=== PATIENT | male | born 1975 | race Caucasian/White ===

== ENCOUNTER 2016-11-27 03:41 | Emergency (ER) | payer OTHER ==
--- NOTE | ~2016-11-27 | ER ---
[facility] 41 [facility] [address] ROOM: [place] [address] LOCATION: [facility] ADMIT DATE: 11/27/2016 ER/Outpatient Report DISCHARGE DATE: FAMILY PHYSICIAN: Daquan Frias MD ATTENDING PHYSICIAN: Russell Dunham Time of Arrival: 0341 hours. Time of Evaluation: 0344 hours CHIEF COMPLAINT: Chest pain. HISTORY OF PRESENT ILLNESS: The patient is a 41-year-old male who presents to the emergency department today with a chief complaint of chest pain. He reports this started about 5 hours prior to arrival. Denies any history of similar episodes in the past. It is on the right side of his chest. It is a pressure type pain currently 5/10 in severity. Denies any shortness of breath. No diaphoresis. No nausea or vomiting. Denies any cough. No ripping or tearing sensation. No history of PE, DVT. No hemoptysis. Nothing makes it worse. Nothing makes it better. PAST MEDICAL HISTORY: None. PAST SURGICAL HISTORY: None. FAMILY HISTORY: No early history of coronary artery disease or heart attacks in mother, father, and brother. SOCIAL HISTORY: The patient denies any tobacco use. Reports occasional alcohol use. Denies any illicit drug use. ALLERGIES: NO KNOWN DRUG ALLERGIES. MEDICATIONS: None. PRIMARY CARE DOCTOR: Dr. Frias. REVIEW OF SYSTEMS: [facility] 41 Y [address] ROOM: [place] [address] LOCATION: [facility] ADMIT DATE: 11/27/2016 ER/Outpatient Report DISCHARGE DATE: FAMILY PHYSICIAN: Daquan Frias MD ATTENDING PHYSICIAN: Russell Dunham All systems are reviewed by myself and negative with the exception of those discussed in HPI and past medical history. PHYSICAL EXAMINATION: VITAL SIGNS: Weight 105 kg. Blood pressure 125/79, pulse 67, respiratory rate 16, temperature 98, oxygen saturation 96% on room air. GENERAL: The patient is a 41-year-old male, who his appears his stated age, in no acute distress at this time. HEENT: Head normocephalic atraumatic. Pupils are equal, round, and reactive to light. Extraocular motions intact. NECK: Supple. There is no nuchal rigidity. CARDIOVASCULAR: Regular rate and rhythm. No murmurs, rubs, or gallops. LUNGS: Clear to auscultation bilaterally. No wheezes, rales, or rhonchi. ABDOMEN: Soft, nontender, and nondistended. No rebound, rigidity, or guarding. MUSCULOSKELETAL: The patient moves all 4 extremities. SKIN: Warm and dry with no rashes or lesions noted. LABORATORY DATA AND X-RAYS: EKG is obtained, is interpreted by myself shows sinus rhythm with a rate of 69, normal axis, normal interval. No ST elevation, ST depression, T-wave inversions. CBC is normal. Coags are normal. CMP is normal. LFTs normal. Magnesium is normal. Cardiac enzymes are normal. Chest x-ray shows no acute process as interpreted by myself. IMPRESSION: 1. Chest pain, unclear etiology. 2. Initial visit. EMERGENCY DEPARTMENT COURSE: The patient brought back to the examination room. Seen and evaluated by myself. IV is established. Laboratory analysis and imaging are obtained as described above. The patient was given 4 baby aspirin as well as 1 sublingual nitroglycerin. There was no relief with the sublingual nitroglycerin. The patient's pain did spontaneously resolve. I have discussed results with the patient and his . I have discussed different options. He would like to do a 2-hour cardiac enzymes to place the patient on a lower risk at this time. These results are pending, and I have discussed the case with Dr. Stauffer. Cardiac enzymes, these were normal. The patient will follow up with Dr. Frias in 2 to 3 days for re-evaluation and discussion for possible further outpatient evaluation of his chest pain. I discussed return to care instructions including worsening symptoms or any other concerns to return to the emergency department as soon as possible. The patient is PERC negative. DISPOSITION: PATIENT'S NAME: LEA SIMON [facility] AGE: 41 Y [address] ROOM: [place], [place] [address] LOCATION: [facility] ADMIT DATE: 11/27/2016 ER/Outpatient Report DISCHARGE DATE: FAMILY PHYSICIAN: Daquan Frias MD ATTENDING PHYSICIAN: Russell Dunham The patient discharged to home in good condition. DO AFRICA WALSH/xochilt /[id number] d: 11/27/16 0525 t: 12/04/16 1019, OUTPATIENT REPORT
--- NOTE | ~2016-11-27 | ER ---
PATIENT'S NAME: LEA SIMON [facility] AGE: 41 Y [address] ROOM: [place] [address] LOCATION: [facility] ADMIT DATE: 11/27/2016 ER/Outpatient Report DISCHARGE DATE: 11/27/2016 FAMILY PHYSICIAN: Daquan Frias MD ATTENDING PHYSICIAN: Russell Dunham This patient is a 41-year-old male, who presented to the emergency room with chest pain. Initially, he saw Dr. Dunham. See Dr. Dunham's dictation in regard to the chief complaint, history of present illness, past medical history, physical exam, laboratory, x-ray, and EKG study results. Dr. Dunham transferred the patient to ct at shift change and asked me to follow up with the second set of cardiac enzymes results. Two-hour cardiac enzymes were normal. The patient was discharged from the emergency room per Dr. Dunham's orders. MD ODETTE THOMPSON/modl /[id number] d: 11/27/1642 t: 11/28/16611, OUTPATIENT REPORT
[2016-11-27 04:05] LABS: BASOPHIL % 0.4 %; EOSINOPHIL # 0.1 K/uL (0.0-0.5); EOSINOPHIL % 1.3 %; HEMATOCRIT 45.6 % (37.0-53.0); HEMOGLOBIN 15.2 g/dL (12.0-17.0); IMMATURE GRANULOCYTE % 0.3 %; LYMPHOCYTE # 2.6 K/uL (0.8-4.0); LYMPHOCYTE % 35.9 %; MCH 28.4 pg (27.0-34.0); MCHC 33.3 gm/dL (32.0-36.5); MCV 85.2 fl (83.0-98.0); MONOCYTE # 0.5 K/uL (0.0-1.0); MPV 10.9 fl (9.4-12.4); NEUTROPHIL % 55.1 %; NRBC % 0 /100WBC (0-0.00); PLATELET COUNT 162 K/uL (150-450); RBC 5.35 M/uL (4.00-6.00); RDW-CV 12.6 % (11.9-14.6); WBC 7.2 K/uL (4.0-11.0)
[2016-11-27 04:14] LABS: INR - (THERAPEUTIC) 0.95 (0.92-1.07); PTT 24 SECONDS (25-32)
[2016-11-27 04:23] LABS: ALBUMIN 4.1 gm/dL (3.5-5.0); ALK PHOS 56 IU/L (33-138); ALT 26 IU/L (12-78); ANION GAP 11.7 (10.0-19.0); AST 14 IU/L (10-40); BLOOD UREA NITROGEN 16 mg/dL (6-24); CALCIUM 8.5 mg/dL (8.5-10.5); CHLORIDE 104 mMol/L (96-110); CO2 29 mMol/L (22-32); CPK 69 IU/L (35-332); CREATININE 1.1 mg/dL (0.6-1.3); ESTIMATED GFR (MDRD EQUATION) > 60; MAGNESIUM 2.3 mg/dL (1.8-2.6); POTASSIUM 3.7 mMol/L (3.7-5.1); SODIUM 141 mMol/L (135-145); TOTAL BILIRUBIN 0.6 mg/dL (0.0-1.5); TOTAL PROTEIN 7.5 g/dL (6.0-8.4)
[2016-11-27 06:22] LABS: CPK 58 IU/L (35-332)
== END 2016-11-27 06:46 | disposition disaster alternative care site (69) ==
LOC: GMED 03:41
PROVIDERS: Emergency Medicine
DX: R07.9 Chest pain, unspecified (principal)